=== PATIENT | female | born 1960 | race Caucasian/White ===

== ENCOUNTER → 2016-08-16 | Outpatient (CLI) | payer BC ==
[2014-06-02 15:43] VITALS: BP 121/78
--- NOTE | 2016-08-16 08:49 | RAD ---
Exam: PA and lateral chest radiograph History: Chest congestion, headache, sore throat for 3 days, asthma. Comparison: June 02, 2014. Findings: Cardiomediastinal silhouette is within normal limits for size. Bilateral lung puentes are free of focal infiltrate. No pleural effusion is seen. Impression: No acute cardiopulmonary process.
== END | disposition home or self-care (01) ==
LOC: DXRADRC 08:00
PROVIDERS: ATTEND Physician Assistant Medical
DX: J45.909 Unspecified asthma, uncomplicated (principal); R05 Cough
CPT/HCPCS: 71020

== ENCOUNTER → 2017-02-15 | Outpatient (CLI) | payer BC ==
[2014-06-02 15:43] VITALS: BP 121/78
--- NOTE | 2017-02-15 08:16 | RAD ---
Chest radiograph 02/15/2017 2:00 AM Indication: Productive cough, sore throat and fever Comparison: Chest radiograph 08/16/2016 Technique: PA and lateral views of the chest are provided. Findings: Cardiomediastinal silhouette is within normal limits. No pleural effusions, pulmonary vascular congestion or pneumothorax. There is nodular airspace consolidation in the left upper lobe suspicious for infiltrate. Osseous structures are normal. Impression: There is nodular airspace consolidation in the left upper lobe, new from prior examination. Findings are suspicious for pulmonary infiltrate in the appropriate clinical setting. Recommend follow-up chest radiograph in 3-4 weeks to ensure resolution.
== END | disposition home or self-care (01) ==
LOC: DXRADRC 07:39
PROVIDERS: ATTEND Nurse Practitioner Family
DX: J02.9 Acute pharyngitis, unspecified (principal); R50.9 Fever, unspecified; R05 Cough
CPT/HCPCS: 71020

== ENCOUNTER → 2017-02-18 | Outpatient (CLI) | payer BC ==
[2014-06-02 15:43] VITALS: BP 121/78
--- NOTE | 2017-02-18 08:57 | RAD ---
INDICATION: CHEST CONGESTION, HX OF PNEUMONIA COMPARISON: 02/15/2017 FINDINGS: 2 views of chest obtained. Repeat demonstration of focal opacity in the left upper lung which is similar to slightly decreased when compared to prior. No definite new region of focal consolidation. Cardiac silhouette similar prior IMPRESSION: Repeat demonstration of focal opacity in the left upper lung. This could be secondary to a region of pneumonia but continued follow-up will be needed until resolution.
== END | disposition home or self-care (01) ==
LOC: DXRADRC 08:43
PROVIDERS: ATTEND Nurse Practitioner Family
DX: R09.89 Other specified symptoms and signs involving the circulatory and respiratory systems (principal); J45.909 Unspecified asthma, uncomplicated; Z87.01 Personal history of pneumonia (recurrent)
CPT/HCPCS: 71020

== ENCOUNTER → 2017-02-22 | Outpatient (CLI) | payer BC ==
[2014-06-02 15:43] VITALS: BP 121/78
--- NOTE | 2017-02-22 15:26 | RAD ---
Chest, 2 views, 02/22/2017: History: Chest congestion with productive cough The heart size and pulmonary vascularity are normal. The previously seen left upper lobe opacity has nearly completely resolved. No new pulmonary abnormality is seen. There is no evidence of pleural fluid. Mild spurring is present in the spine. IMPRESSION: Further interval clearing of the mild left upper lobe infiltrate, compatible with resolving pneumonia.
== END | disposition home or self-care (01) ==
LOC: DXRADRC 10:22
PROVIDERS: ATTEND Nurse Practitioner Family
DX: R09.89 Other specified symptoms and signs involving the circulatory and respiratory systems (principal); R05 Cough; R91.8 Other nonspecific abnormal finding of lung field; M53.80 Other specified dorsopathies, site unspecified; J45.909 Unspecified asthma, uncomplicated
CPT/HCPCS: 71020

== ENCOUNTER → 2017-08-15 | Outpatient (CLI) | payer BC ==
[2014-06-02 15:43] VITALS: BP 121/78
[~2017-08-15] MED LIST: IOHEXOL 240 MG/ML 50ML VIAL. ONE; IOHEXOL 240 MG/ML 50ML VIAL. PO ONE; IOHEXOL 300 MG/ML 75 ML VIAL. IV ONE
--- NOTE | 2017-08-15 16:26 | RAD ---
CT ABD PELV W/ORAL IV CONTRAST dated 08/15/2017 3:49 PM Indication: Abdominal pain for 5 days.epigastric pain, Omni 300/75ml, [id number], 30ml in [place]. No prior imaging pain Comparison: 06/28/2011 Technique: Contiguous axial imaging of the abdomen and pelvis performed after the intravenous administration of 75 cc Omnipaque 300. One or more of the following individualized dose reduction techniques were utilized for this examination: 1. Automated exposure control 2. Adjustment of the mA and/or kV according to patient size 3. Use of iterative reconstruction technique Findings: Limited images of lung bases are clear. Heart size within normal limits. No pleural or pericardial effusion. Liver is of diffuse low density, compatible with fatty infiltration. No apparent hepatic mass. Biliary tree normal in caliber. Gallbladder unremarkable. Spleen is normal in size. Pancreas, adrenal glands and kidneys are unremarkable. No hydronephrosis. Partially opacified GI tract is normal in caliber and contour. No focal bowel wall thickening. There are a few scattered diverticula throughout the colon. No paracolonic inflammatory changes. The appendix is normal in caliber. No ascites or lymphadenopathy. Images of pelvis show nondistended urinary bladder. Uterus and adnexa are unremarkable. No free pelvic fluid or pelvic lymphadenopathy. Bone windows show no acute finding's. Mild multilevel spondylosis. IMPRESSION: 1. No acute abnormality of abdomen or pelvis. Normal appendix. 2. Diverticulosis. 3. Fatty infiltration of the liver. Electronically signed by: Zack Patricia MD (08/15/2017 4:22 PM) [id number]
== END | disposition home or self-care (01) ==
LOC: PMG 14:43
PROVIDERS: ATTEND Nurse Practitioner Family
DX: K76.0 Fatty (change of) liver, not elsewhere classified (principal); M47.894 Other spondylosis, thoracic region; K57.90 Diverticulosis of intestine, part unspecified, without perforation or abscess without bleeding
CPT/HCPCS: 74177; Q9966; Q9967

== ENCOUNTER 2019-05-15 12:26 | Emergency (ER) | payer BC ==
[~2019-05-15] VITALS: Ht 167.6 cm; Wt 104.0 kg
--- NOTE | 2019-05-15 12:47 | PHYS DOC ---
Past History Past Medical History: No Pertinent History Past Surgical History: , Hysterectomy Alcohol Use: None Drug Use: None Adult General Chief Complaint Chief Complaint: FLANK PAIN [facility] HPI Patient is a 58 year old F who presents with painful urination, frequency, urgency and left flank pain. She was diagnosed with a urinary tract infection several days ago and started on Cipro. Her symptoms did not improve. Initially she had urinary tract infections symptoms. She has since developed nausea and left flank pain. She describes some loose stools. She does have a history of diverticulitis however she feels that her symptoms are different from previous episodes of diverticulitis. She has no other associated symptoms. She states that her pain is worse with movement and improved with rest. Her pain is dull and constant. Review of Systems Review of Systems Constitutional: Denies fever or chills [] Eyes: Denies change in visual acuity, redness, or eye pain [] HENT: Denies nasal congestion or sore throat [] Respiratory: Denies cough or shortness of breath [] Cardiovascular: No additional information not addressed in HPI [] GI: Negative except history of present illness : Negative except history of present illness Musculoskeletal: Denies back pain or joint pain [] Integument: Denies rash or skin lesions [] Neurologic: Denies headache, focal weakness or sensory changes [] Endocrine: Denies polyuria or polydipsia [] All other systems were reviewed and found to be within normal limits, except as documented in this note. Family History Family History No pertinent family medical history was reported Allergies Allergies Allergies Coded Allergies Type Severity Reaction Last Updated Verified aspirin Allergy Unknown 06/02/14 Yes gatifloxacin Allergy Unknown 06/02/14 Yes Physical Exam Physical Exam Constitutional: Well developed, well nourished, no acute distress, non-toxic appearance. [] Appears uncomfortable HENT: Normocephalic, atraumatic Eyes: EOMI, conjunctiva normal, no discharge. [] Neck: Normal range of motion, no tenderness, supple, no stridor. [] Cardiovascular:Heart rate regular rhythm, Lungs & Thorax: Bilateral breath sounds clear to auscultation [] Abdomen: Bowel sounds normal, soft, no masses, no pulsatile masses. [] Tender to palpation in the suprapubic and left lower quadrant. Left flank tenderness noted Skin: Warm, dry, no erythema, no rash. [] Back: No tenderness, Extremities: No tenderness, no cyanosis, no clubbing, ROM intact, no edema. [] Neurologic: Alert and oriented X 3, normal motor function, normal sensory function, no focal deficits noted. [] Psychologic: Affect normal, judgement normal, mood normal. [] Current Patient Data Vital Signs Vital Signs Date Time Temp Pulse Resp B/P (MAP) Pulse Ox O2 Delivery O2 Flow Rate FiO2 05/15/19 13:25 18 05/15/19 12:30 98.0 83 20 96 Room Air Lab Results Laboratory Tests Test 05/15/19 12:48 05/15/19 13:20 Urine Collection Type Unknown Urine Color Yellow Urine Clarity Clear Urine pH 6.0 Urine Specific [place] 1.025 Urine Protein Neg (NEG-TRACE) Urine Glucose (UA) Neg mg/dL (NEG) Urine Ketones (Stick) Neg mg/dL (NEG) Urine Blood Neg (NEG) Urine Nitrite Neg (NEG) Urine Bilirubin Neg (NEG) Urine Urobilinogen Dipstick 0.2 mg/dL (0.2 mg/dL) Urine Leukocyte Esterase Neg (NEG) Urine RBC 0 /HPF (0-2) Urine WBC Rare /HPF (0-4) Urine Squamous Epithelial Cells Occ /LPF Urine Bacteria Few /HPF (0-FEW) White Blood Count 7.7 x10^3/uL (4.0-11.0) Red Blood Count 5.07 x10^6/uL (3.50-5.40) Hemoglobin 15.6 g/dL (12.0-15.5) Hematocrit 46.5 % (36.0-47.0) Mean Corpuscular Volume 92 fL (79-100) Mean Corpuscular Hemoglobin 31 pg (25-35) Mean Corpuscular Hemoglobin Concent 33 g/dL (31-37) Red Cell Distribution Width 13.2 % (11.5-14.5) Platelet Count 300 x10^3/uL (140-400) Neutrophils (%) (Auto) 78 % (31-73) Lymphocytes (%) (Auto) 17 % (24-48) Monocytes (%) (Auto) 4 % (0-9) Eosinophils (%) (Auto) 0 % (0-3) Basophils (%) (Auto) 0 % (0-3) Neutrophils # (Auto) 6.0 x10^3uL (1.8-7.7) Lymphocytes # (Auto) 1.3 x10^3/uL (1.0-4.8) Monocytes # (Auto) 0.3 x10^3/uL (0.0-1.1) Eosinophils # (Auto) 0.0 x10^3/uL (0.0-0.7) Basophils # (Auto) 0.0 x10^3/uL (0.0-0.2) Sodium Level 139 mmol/L (136-145) Potassium Level 3.6 mmol/L (3.5-5.1) Chloride Level 100 mmol/L (98-107) Carbon Dioxide Level 30 mmol/L (21-32) Anion Gap 9 (6-14) Blood Urea Nitrogen 19 mg/dL (7-20) Creatinine 1.0 mg/dL (0.6-1.0) Estimated GFR (Cockcroft-Gault) 56.6 Glucose Level 121 mg/dL (70-99) Calcium Level 9.3 mg/dL (8.5-10.1) Total Bilirubin 0.3 mg/dL (0.2-1.0) Direct Bilirubin 0.1 mg/dL (0.0-0.2) Aspartate Amino Transf (AST/SGOT) 16 U/L (15-37) Alanine Aminotransferase (ALT/SGPT) 35 U/L (14-59) Alkaline Phosphatase 98 U/L (46-116) Total Protein 8.0 g/dL (6.4-8.2) Albumin 4.1 g/dL (3.4-5.0) Lipase 131 U/L (73-393) EKG EKG [] Radiology/Procedures Radiology/Procedures [] Impressions: Examination: CT ABD PELV W/ IV CONTRST ONLY History: Abdominal pain Comparison/Correlation: 08/16/[address] abdomen and pelvis with contrast Findings: Axial images of the abdomen and pelvis were obtained following IV contrast. Sagittal and coronal reformatted images were provided. Visualized lung bases are clear. Mild fatty infiltration of the liver is present. Spleen is normal. Pancreas is unremarkable. Adrenal glands are normal. Rectum is normal. Left renal upper pole lesion which may represent a cyst or other benign process is stable at the medial aspect. Appendix is normal. Diverticulosis is present involving the sigmoid colon in particular without acute inflammatory findings. Mild diverticulosis of the seen. No ascites or pelvic free fluid. Urinary bladder is unremarkable. Uterus is unremarkable. Small umbilical hernia contains omental fat. No bowel obstruction or extraluminal gas. Gallbladder fossa is unremarkable. No enlarged abdominal or pelvic lymph nodes. Mild degenerative change of the lumbar spine noted. Impression: Diverticulosis. No acute inflammation. Fatty infiltration of the liver. Course & Med Decision Making Course & Med Decision Making Pertinent Labs and Imaging studies reviewed. (See chart for details) [] Dragon Disclaimer Dragon Disclaimer This electronic medical record was generated, in whole or in part, using a voice recognition dictation system. Departure Departure: Impression: Primary Impression: Abdominal pain Disposition: HOME, SELF-CARE Condition: STABLE Referrals: PCPKAREN (PCP) Patient Instructions: Abdominal Pain Additional Instructions: Lakisha was seen in the ED for abdominal pain. No emergency medical condition was found on history and physical exam. She did have normal labs and imaging. Her symptoms did improve. She was given a script for Levsin for her symptoms. She was advised to return to the ED if she develops new or worsening symptoms. She was also advised follow-up with her primary care doctor in the next 3-5 days for further management Scripts Hyoscyamine Sulfate (LEVSIN) 0.125 Mg Tablet 1 TAB PO Q4HRS PRN for PAIN for 20 Days, #120 TAB 0 Refills Prov: TORRI JARA MD 05/15/19 Problem Qualifiers Primary Impression: Abdominal pain Abdominal location: left lower quadrant Qualified Codes: R10.32 - Left lower quadrant pain TORRI JARA MD May 15, 2019 12:47
[2019-05-15 13:07] LABS: BACTERIA,URINE FEW /HPF (0-FEW); BILIRUBIN,URINE NEG (NEG); CLARITY,URINE CLEAR; COLOR,URINE YELLOW; GLUCOSE,URINE NEG (NEG); NITRITE,URINE NEG (NEG); RBC,URINE 0 /HPF (0-2); SQUAMOUS EPITHELIAL CELL,UR OCC /LPF; UROBILINOGEN,URINE 0.2 mg/dL (0.2 mg/dL); WBC,URINE RARE /HPF (0-4)
[2019-05-15] MEDS ORDERED: HYDROcodone/APAP 10/325 1 TAB TABLET PO ONE (13:30)
[2019-05-15] MEDS ORDERED: IV NORMAL SALINE 1,000ML 1,000 ML IV ONE (13:30)
[2019-05-15 13:37] LABS: BASO % 0 % (0-3); EOS % 0 % (0-3); HEMATOCRIT 46.5 % (36.0-47.0); HEMOGLOBIN 15.6 g/dL (12.0-15.5); LYMPH # 1.3 x10^3/uL (1.0-4.8); LYMPH % 17 % (24-48); MEAN CORPUSCULAR HEMOGLOBIN 31 pg (25-35); MEAN CORPUSCULAR HGB CONC 33 g/dL (31-37); MEAN CORPUSCULAR VOLUME 92 fL (79-100); MONO # 0.3 x10^3/uL (0.0-1.1); MONO % 4 % (0-9); NEUT % 78 % (31-73); PLATELET COUNT 300 x10^3/uL (140-400); RED BLOOD COUNT 5.07 x10^6/uL (3.50-5.40); RED CELL DISTRIBUTION WIDTH 13.2 % (11.5-14.5); WHITE BLOOD COUNT 7.7 x10^3/uL (4.0-11.0)
[2019-05-15 13:43] LABS: CALCIUM 9.3 mg/dL (8.5-10.1); GFR 56.6; POTASSIUM 3.6 mmol/L (3.5-5.1)
[2019-05-15 14:07] LABS: ALBUMIN 4.1 g/dL (3.4-5.0); DIRECT BILIRUBIN 0.1 mg/dL (0.0-0.2); TOTAL BILIRUBIN 0.3 mg/dL (0.2-1.0)
[2019-05-15] MEDS ORDERED: CONTRAST GIVEN MC PRN (14:15)
[2019-05-15] MEDS ORDERED: IOHEXOL 300 MG/ML 75 ML VIAL. IV ONE (14:15)
--- NOTE | 2019-05-15 14:59 | RAD ---
Examination: CT ABD PELV W/ IV CONTRST ONLY History: Abdominal pain Comparison/Correlation: 08/16/[address] abdomen and pelvis with contrast Findings: Axial images of the abdomen and pelvis were obtained following IV contrast. Sagittal and coronal reformatted images were provided. Visualized lung bases are clear. Mild fatty infiltration of the liver is present. Spleen is normal. Pancreas is unremarkable. Adrenal glands are normal. Rectum is normal. Left renal upper pole lesion which may represent a cyst or other benign process is stable at the medial aspect. Appendix is normal. Diverticulosis is present involving the sigmoid colon in particular without acute inflammatory findings. Mild diverticulosis of the seen. No ascites or pelvic free fluid. Urinary bladder is unremarkable. Uterus is unremarkable. Small umbilical hernia contains omental fat. No bowel obstruction or extraluminal gas. Gallbladder fossa is unremarkable. No enlarged abdominal or pelvic lymph nodes. Mild degenerative change of the lumbar spine noted. Impression: Diverticulosis. No acute inflammation. Fatty infiltration of the liver. PQRS Compliance Statement: One or more of the following individualized dose reduction techniques were utilized for this examination: 1. Automated exposure control 2. Adjustment of the mA and/or kV according to patient size 3. Use of iterative reconstruction technique Electronically signed by: Evaristo Vargas MD (05/15/2019 2:56 PM) [facility]
[2019-05-15 15:11] VITALS: BP 109/56
[2019-05-15] MEDS ORDERED: HYOS0.1264 PO (15:45)
== END 2019-05-15 15:49 | disposition home or self-care (01) ==
LOC: ER 12:26
DX: R10.32 Left lower quadrant pain (principal); R30.0 Dysuria; R39.15 Urgency of urination; R19.7 Diarrhea, unspecified; Z87.440 Personal history of urinary (tract) infections; Z90.710 Acquired absence of both cervix and uterus; Z98.890 Other specified postprocedural states; Z88.1 Allergy status to other antibiotic agents; Z88.6 Allergy status to analgesic agent
CPT/HCPCS: 36415; 74177; 80048; 80076; 81001; 83690; 85025; 96360; 99285; Q9967; J7030

== ENCOUNTER → 2019-06-19 | Outpatient (CLI) | payer BC ==
[~2019-06-19] MED LIST changes: +HYOS0.1264 PO; -IOHEXOL 240 MG/ML 50ML VIAL. ONE; -IOHEXOL 240 MG/ML 50ML VIAL. PO ONE; -IOHEXOL 300 MG/ML 75 ML VIAL. IV ONE
--- NOTE | 2019-06-22 14:39 | RAD ---
History: Routine screening. Technique: Bilateral digital mammographic routine views were obtained with 2-D and 3-D technique including use of CAD - computer aided detection. Comparison: 11/03/2012. Findings: Breast Tissue Density B :The breast tissue is composed of mixed fatty and fibroglandular tissue. There are no suspicious masses, microcalcifications or areas of architectural distortion. Impression: Negative mammogram. BI-RADS Category 1: Negative. Normal interval followup. A mammogram does not have 100% sensitivity and therefore a negative imaging study should not delay further work up of a suspicious abnormality. The patient will receive a letter with the results in the mail. Patient information is entered into the reminder system with a target due date for the next screening mammogram. The patient will receive a reminder. "Our facility is accredited by the [employer] Mammography Program." BI-RADS 1 -- negative findings (within normal)
== END | disposition home or self-care (01) ==
LOC: MAMMO 15:15
PROVIDERS: ATTEND Physician Assistant Medical
DX: Z12.31 Encounter for screening mammogram for malignant neoplasm of breast (principal)
CPT/HCPCS: 77063; 77067

== ENCOUNTER 2019-11-04 05:40 | Observation (INO) | payer BC ==
[~2019-11-04] VITALS: Ht 167.6 cm; Wt 102.6 kg
--- NOTE | 2019-11-04 05:46 | PHYS DOC ---
Past History Past Medical History: Asthma, Depression, Diverticulitis, GERD (JOEY NOVOA MD) Past Surgical History: , Hysterectomy, Other Additional Past Surgical Histo: FOOT SURGERIES (JOEY NOVOA MD) Alcohol Use: None Drug Use: None (JOEY NOVOA MD) General Adult EDM: Chief Complaint: dizziness HPI: HPI: Patient is a 59 year old female who presents with above hx and complaints dizzy. Pt. follow s with Nina. (JOEY NOVOA MD) HPI: Patient is a 59-year-old female who presented to ER today for evaluation of dizziness associate with some nausea vomiting. Patient says symptoms started yesterday, she was thinking it might be her nasal congestion, so she used [id number] decongestant medication. That seemed to help with her symptoms. Patient felt much better then. Patient went to sleep last night, she woke up this morning at 2 AM to go to the bathroom when she has severe dizziness, she felt she might fall because of dizziness. Patient also have ringing in her ear, her symptom get worse with head movement or upright position. Patient denies any weakness or numbness anywhere. Denies any memory loss or slow speech. Patient denies any headache, no fever. Patient is still feeling dizzy right now. Patient had not had this Problem in the past. Patient denies any cough or fever, no recent travel or operation. Patient denies being exposed to anybody who tested positive for COVID-19. (TORRI MO DO) Review of Systems: Review of Systems: Constitutional: Denies fever or chills Eyes: Denies change in visual acuity HENT: Denies nasal congestion or sore throat Respiratory: Denies cough or shortness of breath Cardiovascular: Denies chest pain or edema GI: Denies abdominal pain, nausea, vomiting, bloody stools or diarrhea : Denies dysuria Musculoskeletal: Denies back pain or joint pain Integument: Denies rash Neurologic: Denies headache, focal weakness or sensory changes Endocrine: Denies polyuria or polydipsia Lymphatic: Denies swollen glands Psychiatric: Denies depression or anxiety (JOEY NOVOA MD) Heart Score: Risk Factors: Risk Factors: DM, Current or recent (<one month) smoker, HTN, HLP, family history of CAD, obesity. Risk Scores: Score 0 - 3: 2.5% MACE over next 6 weeks - Discharge Home Score 4 - 6: 20.3% MACE over next 6 weeks - Admit for Clinical Observation Score 7 - 10: 72.7% MACE over next 6 weeks - Early Invasive Strategies (JOEY NOVOA MD) Allergies: Allergies: Allergies Coded Allergies Type Severity Reaction Last Updated Verified aspirin Allergy Unknown 06/02/14 Yes gatifloxacin Allergy Unknown 06/02/14 Yes (JOEY NOVOA MD) Physical Exam: PE: Constitutional: Well developed, well nourished, no acute distress, non-toxic appearance. [] HENT: Normocephalic, atraumatic, bilateral external ears normal, oropharynx moist, no oral exudates, nose normal. [] Eyes: PERRLA, EOMI, conjunctiva normal, no discharge. [] Neck: Normal range of motion, no tenderness, supple, no stridor. [] Cardiovascular:Heart rate regular rhythm, no murmur [] Lungs & Thorax: Bilateral breath sounds clear to auscultation [] Abdomen: Bowel sounds normal, soft, no tenderness, no masses, no pulsatile masses. [] Skin: Warm, dry, no erythema, no rash. [] Back: No tenderness, no CVA tenderness. [] Extremities: No tenderness, no cyanosis, no clubbing, ROM intact, no edema. [] Neurologic: Alert and oriented X 3, normal motor function, normal sensory function, no focal deficits noted. [] Psychologic: Affect normal, judgement normal, mood normal. [] (JOEY NOVOA MD) PE: VITAL SIGNS: Within normal limits. GENERAL: No acute distress, non-toxic appearance. HEAD: Normal with no signs of head trauma. EYES: PERRLA, EOMI, conjunctiva normal, no discharge. EARS: Hearing grossly intact. NOSE: Normal. THROAT: Oropharynx is normal. NECK: Normal range of motion, no tenderness, supple, no lymphadenopathy, No adenopathy, no JVD. CHEST: Clear breath sounds bilaterally. No wheezes, rales, or rhonchi. CARDIAC: Regular rate and rhythm. S1 and S2, without murmurs, gallops, or rubs. VASCULAR: No Edema. Peripheral pulses normal and equal in all extremities. ABDOMEN: Normal and soft with no tenderness, no masses or pulsatile masses. GASTROINTESTINAL: Bowel sounds normal GENITOURINARY: Normal, No tenderness LYMPATHTIC: No lymphadenopathy noted. MUSCULOSKELETAL: Good range of motion of all major joints. Extremities without clubbing, cyanosis or edema. NEUROLOGICAL: Alert and oriented x 3. No focal sensory or strength deficits. Speech normal. Follows commands appropriately. PSYCHIATRIC: Normal Affect, judgement and mood. SKIN: Normal appearance with no rashes or lesions. (TORRI MO DO) EKG: EKG: [] (JOEY NOVOA MD) EKG: EKG was done at 601, heart rate 78 beats per minute, normal sinus rhythm, no ST segment elevation. (TORRI MO DO) Radiology/Procedures: Radiology/Procedures: [] (JOEY NOVOA MD) Radiology/Procedures: [place] [address] IMAGING REPORT Signed PATIENT: NANCY BUENO ACCOUNT: [id number] : 1960 LOCATION: ER AGE: 59 SEX: F EXAM STATUS: REG ER ORD. PHYSICIAN: JOEY NOVOA MD REASON: dizzy PROCEDURE: CT HEAD WO CONTRAST CT scan of the head without contrast 11/04/2019 Clinical History: Dizziness. Technique: Unenhanced, contiguous, 5 mm axial sections were obtained through the head. One or more of the following individualized dose reduction techniques were utilized for this study: 1. Automated exposure control. 2. Adjustment of the mA and/or kV according to patient size. 3. Use of iterative reconstruction technique. Findings: No previous studies are available for comparison. There is mild generalized parenchymal atrophy. No acute parenchymal abnormality is seen. No extra-axial fluid collection is noted. No skull fracture is seen. Impression: No acute intracranial abnormality is seen. Electronically signed by: Bereket Bojorquez MD (11/04/2019 6:38 AM) [id number] DICTATED AND SIGNED BY: BEREKET BOJORQUEZ MD DATE: 11/04/19 0638 CC: JOEY NOVOA MD; TORRI OM DO; BRI QUEZADA ~ (TORRI MO DO) Course & Med Decision Making: Course & Med Decision Making Pertinent Labs and Imaging studies reviewed. (See chart for details) Pt. endorsed to Dr. Mo at shift change 0600, he will make disposition. Impression: 1. Dizzy [] (JOEY NOVOA MD) Course & Med Decision Making Patient is a 59-year-old female who was evaluated in ER due to dizziness. Patient was given meclizine , and Zofran for nausea. Patient feels better but whenever she was up and walk again she started having dizziness and nausea again. We will admit her to the hospital for further evaluation treatment. (TORRI MO DO) Dragon Disclaimer: Dragon Disclaimer: This electronic medical record was generated, in whole or in part, using a voice recognition dictation system. (JOEY NOVOA MD) Departure Departure: Impression: Primary Impression: Dizziness Additional Impression: Acute severe vertigo Disposition: ADMITTED INPATIENT Admitting Physician: Shaka Fox (TORRI MO DO) Condition: STABLE Referrals: BRI QUEZADA (PCP) Justification of Admission: Justification of Admission: Justification of Admission Dx: Yes Comments: Dizzy, TIA ? (JOEY NOVOA MD) Justification of Admission Dx: N/A (TORRI MO DO) Dragon Disclaimer This chart was dictated in whole or in part using Voice Recognition software in a busy, high-work load, and often noisy Emergency Department environment. It may contain unintended and wholly unrecognized errors or omissions. (JOEY NOVOA MD) JOEY NOVOA MD Nov 04, 2019 05:46 TORRI MO DO Nov 04, 2019 07:05
[2019-11-04] MEDS ORDERED: IV RINGERS SOLUTION,LACTATED 1,000 ML IV SCH (06:00)
--- NOTE | 2019-11-04 06:15 | EKG ---
[address] [address] Test Date: 2019-11-04 Test Time: 06:01:23 Pat Name: NANCY BUENO Department: Room: Gender: F Lighting Specialist: : 1960 Requested By: JOEY NOVOA Order Number: [id number] Reading MD: Measurements Intervals Wilder Rate: 78 P: 47 TX: 158 QRS: 16 QRSD: 90 T: 18 QT: 378 QTc: 434 Interpretive Statements SINUS RHYTHM NORMAL ECG RI6.02 No previous ECG available for comparison
--- NOTE | 2019-11-04 06:41 | RAD ---
CT scan of the head without contrast 11/04/2019 Clinical History: Dizziness. Technique: Unenhanced, contiguous, 5 mm axial sections were obtained through the head. One or more of the following individualized dose reduction techniques were utilized for this study: 1. Automated exposure control. 2. Adjustment of the mA and/or kV according to patient size. 3. Use of iterative reconstruction technique. Findings: No previous studies are available for comparison. There is mild generalized parenchymal atrophy. No acute parenchymal abnormality is seen. No extra-axial fluid collection is noted. No skull fracture is seen. Impression: No acute intracranial abnormality is seen. Electronically signed by: Bereket Bojorquez MD (11/04/2019 6:38 AM) [id number]
[2019-11-04] MEDS ORDERED: MECLIZINE 12.5 MG TABLET. PO ONE (06:45)
[2019-11-04] MEDS ORDERED: ONDANSETRON PF 4 MG/2 ML VIAL. IVP ONE (06:45)
[2019-11-04 07:31] LABS: BASO % 0 % (0-3); EOS % 1 % (0-3); HEMATOCRIT 42.6 % (36.0-47.0); HEMOGLOBIN 14.8 g/dL (12.0-15.5); LYMPH # 0.9 x10^3/uL (1.0-4.8); LYMPH % 21 % (24-48); MEAN CORPUSCULAR HEMOGLOBIN 31 pg (25-35); MEAN CORPUSCULAR HGB CONC 35 g/dL (31-37); MEAN CORPUSCULAR VOLUME 91 fL (79-100); MONO # 0.2 x10^3/uL (0.0-1.1); MONO % 6 % (0-9); NEUT # 3.1 x10^3uL (1.8-7.7); NEUT % 73 % (31-73); PLATELET COUNT 238 x10^3/uL (140-400); RED CELL DISTRIBUTION WIDTH 13.2 % (11.5-14.5); WHITE BLOOD COUNT 4.2 x10^3/uL (4.0-11.0)
--- NOTE | 2019-11-04 07:34 | RAD ---
EXAM: CHEST PA LATERAL INDICATION: Reason: dizzy / Spl. Instructions: / History: . TECHNIQUE: PA and lateral views COMPARISON: 02/22/2017 FINDINGS: The heart size is normal. The great vessels appear unremarkable. There is no hilar or mediastinal mass. The lungs are clear. There is no pleural effusion or pneumothorax. There are no significant osseous abnormalities. IMPRESSION: No active cardiopulmonary disease. Electronically signed by: Agustin Escobar MD (11/04/2019 7:31 AM) [id number]
[2019-11-04 08:01] LABS: CALCIUM 9.2 mg/dL (8.5-10.1); GFR 56.4
[2019-11-04 08:10] LABS: ALBUMIN 3.7 g/dL (3.4-5.0); C REACTIVE PROTEIN 7.3 mg/L (0-3.3); DIRECT BILIRUBIN 0.1 mg/dL (0.0-0.2); TOTAL BILIRUBIN 0.3 mg/dL (0.2-1.0); TOTAL PROTEIN 6.8 g/dL (6.4-8.2)
[2019-11-04 08:20] LABS: POTASSIUM 3.5 mmol/L (3.5-5.1)
[2019-11-04 08:55] LABS: AMPHETAMINE/METHAMPHETAMINE NEG (NEG); BARBITURATES NEG (NEG); BENZODIAZEPINES NEG (NEG); CANNABINOIDS NEG (NEG); COCAINE NEG (NEG); METHADONE NEG (NEG); OPIATES NEG (NEG); PHENCYCLIDINE NEG (NEG)
[2019-11-04 09:03] LABS: BACTERIA,URINE FEW /HPF (0-FEW); BILIRUBIN,URINE NEG (NEG); CLARITY,URINE HAZY; COLOR,URINE YELLOW; GLUCOSE,URINE NEG (NEG); NITRITE,URINE NEG (NEG); SQUAMOUS EPITHELIAL CELL,UR MANY /LPF; UROBILINOGEN,URINE 0.2 mg/dL (0.2 mg/dL)
[2019-11-04] MEDS ORDERED: ONDANSETRON PF 4 MG/2 ML VIAL. IVP PRN (10:00)
[2019-11-04] MEDS ORDERED: MECLIZINE 12.5 MG TABLET. PO PRN (10:00)
--- NOTE | 2019-11-04 11:26 | NUR ---
Patient arrived to unit via EMS. Patient is pleasant and cooperative at time of admission. Patients vs obtained and are stable. Patient is offered food and drink. Patient is resting in room at this time. Will continue to monitor.
[2019-11-04 11:45] VITALS: BP 179/82
--- NOTE | 2019-11-04 12:00 | HP ---
ADMIT DATE: 11/04/2019 ATTENDING PHYSICIAN: Dr. Suárez. CHIEF COMPLAINT: Dizziness. HISTORY OF PRESENT ILLNESS: The patient is a very pleasant 59-year-old female who is admitted with a 2-day history of profound dizziness, nausea and symptoms related to vertigo. She has been working outdoors. She does have significant allergies. She has had nausea to the point of one episode of vomiting. In the ED, the CT of the head showed no acute strokes. Her symptoms are aggravated by head movement. She is admitted then with acute vertigo, refractory to outpatient care. PAST MEDICAL HISTORY: Significant for mild asthma, depression, diverticulitis, and gastroesophageal reflux disease. PAST SURGICAL HISTORY: section, hysterectomy and minor foot surgery. ALLERGIES: She has allergies to ASPIRIN and GATIFLOXACIN. MEDICATIONS: Her scheduled medicine only include Levsin. SOCIAL HISTORY: She is a nonsmoker, nondrinker. 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 FAMILY HISTORY: Noncontributory. She has 1 son who works in the same facility. He is an adult and in good health. REVIEW OF SYSTEMS: Significant for allergies. She has had significant allergy symptoms, treated with [id number] antihistamine. No recent fevers, chills, cough, congestion. Nausea as noted. One episode of vomiting. All other systems reviewed and determined to be negative. PHYSICAL EXAMINATION: GENERAL: When I saw her, this is a pleasant, middle-aged female. INITIAL VITAL SIGNS: Showed a blood pressure 147/85 mmHg, temperature 98.7 degrees Fahrenheit. Her oxygen saturations were 97% on room air. HEENT: Head is without trauma. Pupils are reactive. I did not appreciate any nystagmus. NECK: Supple. No adenopathy. LUNGS: Otherwise clear. CARDIOVASCULAR: Showed regular heart tones. No gallops. Peripheral pulses are palpable and full. ABDOMEN: Soft, scaphoid, nontender, no organomegaly. Bowel sounds are hypoactive. EXTREMITIES: Showed no cyanosis or edema. NEUROLOGIC: Focally intact. Speech is fluent. No tremors. I did not assess her Romberg at this time due to dizziness. SKIN: Warm and dry. PERTINENT LABORATORY AND IMAGING STUDIES: The obligatory CT of the head showed no acute intracranial abnormalities identified. Chest x-ray was entirely clear. Hemoglobin is maintained at 14.8 g/dL with white count of 4200. Chemistry panel: Normal BUN and creatinine, electrolytes. Nonfasting blood sugar is 132 mg/dL. ASSESSMENT: 1. This 59-year-old female has acute symptomatic vertigo, refractory to outpatient care. 2. Seasonal allergies. 3. Borderline hypertension. 4. Remote history of asthma. PLAN: 1. Admit to the inpatient unit. 2. Strict bed rest with bathroom privileges. 3. Scheduled meclizine, low dose diazepam and steroids. P.r.n. nausea medication will be also available. AYDEN SUÁREZ MD DR: WHITLEY/ollie JOB#: [id number] / [id number] BRI Bettencourt
[2019-11-04] MEDS: ACETAMINOPHEN 500 MG TABLET PO PRN (12:23)
[2019-11-04] MEDS: predniSONE 20 MG TABLET PO SCH ×2 (12:23→20:00)
[2019-11-04] MEDS: diazePAM 2 MG TABLET PO SCH ×2 (13:28→21:19)
[2019-11-04] MEDS: MECLIZINE 12.5 MG TABLET. PO SCH ×2 (13:28→21:19)
[2019-11-04] MEDS ORDERED: BUPR150T8 PO (14:28)
[2019-11-04] MEDS ORDERED: FAMO-63 PO (14:28)
[2019-11-04] MEDS ORDERED: TRIA1CAP3 PO (14:28)
[2019-11-04 16:17] VITALS: BP 149/71
[2019-11-04] MEDS ORDERED: MONT10TA80 PO (17:12)
[2019-11-04] MEDS ORDERED: HYOSCYAMINE 0.125 MG TAB.RAPDIS PO PRN (17:30)
[2019-11-04 19:53] VITALS: BP 151/64
[2019-11-04] MEDS: FAMOTIDINE 20 MG TABLET PO SCH (20:00)
[2019-11-04] MEDS: buPROPion SR 150 MG TABLET.SA PO SCH (20:01)
[2019-11-04] MEDS ORDERED: MONTELUKAST 10 MG TABLET. PO SCH (21:00)
[2019-11-04] MEDS: DOCUSATE SODIUM 100 MG CAPSULE PO SCH (21:19)
[2019-11-04 23:00] VITALS: BP 149/70
[2019-11-05] MEDS: MECLIZINE 12.5 MG TABLET. PO SCH (05:17)
[2019-11-05] MEDS: ACETAMINOPHEN 500 MG TABLET PO PRN (05:17)
[2019-11-05] MEDS: diazePAM 2 MG TABLET PO SCH (05:17)
[2019-11-05 05:27] VITALS: BP 122/72
[2019-11-05] MEDS: DOCUSATE SODIUM 100 MG CAPSULE PO SCH (07:53)
[2019-11-05] MEDS: buPROPion SR 150 MG TABLET.SA PO SCH (07:53)
[2019-11-05] MEDS: FAMOTIDINE 20 MG TABLET PO SCH (07:54)
[2019-11-05] MEDS: predniSONE 20 MG TABLET PO SCH (07:54)
[2019-11-05] MEDS ORDERED: TRIAMTERENE/HCTZ 75/50MG TABLET. PO SCH (09:00)
--- NOTE | 2019-11-05 10:37 | NUR ---
Patient is Discharged home with . Patient is given prescriptions for Valium, and meclizine. Patient is stable at time of discharge. Patient's IV is D/C'd. Patient has all belongings at time of discharge. Patient ambulated off of unit.
--- NOTE | 2019-11-05 10:59 | DS ---
DATE OF DISCHARGE: 11/05/2019 ATTENDING PHYSICIAN: Dr Suárez. FINAL DISCHARGE DIAGNOSES: 1. Acute vertigo, resolved. 2. Seasonal allergies. 3. Hypertension. 4. Remote history of asthma. HISTORY AND PHYSICAL: This pleasant 59-year-old female has vertigo symptoms. She is very nauseated. Room is spinning dizzy. She was working outdoors and allergies are bothering her. PHYSICAL EXAMINATION: Please see the dictated note. PERTINENT LABORATORY AND X-RAY STUDIES: The obligatory CT of the head showed no acute findings. There is generalized parenchymal atrophy, no strokes were identified. The hemoglobin is maintained at 14.8 g/dL with a white count of 4200. The electrolytes, BUN and creatinine all within normal range. Nonfasting blood sugar 132. Cardiac enzymes were negative for myocardial ischemia. COURSE IN THE HOSPITAL: The patient was admitted. She was placed on bed rest. We started her on empiric meclizine schedule, diazepam and a short course of steroids. She did well. By the second hospital day, she was doing better. The nystagmus was not present. Her dizziness has gone. She was not nauseated and she had a negative Romberg test by my exam. She wanted to go home. I recommended 4 more days of meclizine 25 mg p.o. t.i.d., diazepam 2 mg p.o. t.i.d. with continuation of her home meds. She will also get Stacy-D mbai-cxx-qvhrryp for allergies. I encouraged her to stay indoors and avoid further contact with pollen for the rest of the week. Other home meds include BuSpar, Pepcid, Levsin, montelukast, triamterene/hydrochlorothiazide, dose is unchanged. The patient was then discharged from our hospital in stable condition with explicit instructions and followup care. AYDEN SUÁREZ MD DR: WHITLEY/ollie JOB#: [id number] / [id number] BRI Bettencourt
== END 2019-11-05 10:37 | disposition home or self-care (01) ==
LOC: ER 05:40 → INTOOBSV 09:40 → 1 SOUTH 09:40
PROVIDERS: ADMIT Hospitalist; ATTEND Hospitalist
DX: R42 Dizziness and giddiness (principal); K21.9 Gastro-esophageal reflux disease without esophagitis; F32.9 Major depressive disorder, single episode, unspecified; I10 Essential (primary) hypertension; J45.20 Mild intermittent asthma, uncomplicated; Z79.899 Other long term (current) drug therapy
CPT/HCPCS: 36415; 70450; 71046; 80048; 80076; 80307; 81001; 82550; 83690; 83735; 83880; 84443; 84484; 85025; 85379; 85610; 85730; 86140; 87086; 93005; 96361; 96374; 96376; 99285; G0378; J2405; J7120; J7512; J8597; G0379

== ENCOUNTER → 2019-11-15 | Outpatient (CLI) | payer BC ==
[2019-11-05 05:27] VITALS: BP 122/72
[~2019-11-15] MED LIST changes: +BUPR150T8 PO; +FAMO-63 PO; +MONT10TA80 PO; +TRIA1CAP3 PO
--- NOTE | 2019-11-15 12:45 | RAD ---
EXAM: Maxillofacial bone CT without contrast. HISTORY: Dizziness. Headache. Sinusitis. TECHNIQUE: Computed tomographic images of the neck show facial bones were obtained without contrast. *One or more of the following individualized dose reduction techniques were utilized for this examination: 1. Automated exposure control. 2. Adjustment of the mA and/or kV according to patient size. 3. Use of iterative reconstruction technique. COMPARISON: Head CT dated 11/04/2019. FINDINGS: There is minimal maxillary sinus mucosal thickening. The ostiomeatal units are patent. There is minimal leftward nasal septal deviation. There is no sinus air-fluid level, sinus wall erosion or wall thickening. The orbits are unremarkable. The mastoid air cells are clear. The visualized portions of the brain and calvarium are unremarkable. IMPRESSION: Minimal maxillary sinus mucosal thickening and nasal septal deviation. Electronically signed by: Cheryl Valle MD (11/15/2019 12:42 PM) [id number]
== END ==
LOC: CT 11:39
PROVIDERS: ATTEND Physician Assistant Medical
DX: J34.2 Deviated nasal septum (principal)
CPT/HCPCS: 70486

== ENCOUNTER 2020-04-12 13:53 | Emergency (ER) | payer BC ==
[~2020-04-12] VITALS: Ht 167.6 cm; Wt 102.6 kg
--- NOTE | 2020-04-12 14:08 | PHYS DOC ---
Past History Past Medical History: Asthma, Depression, Diverticulitis, GERD Past Surgical History: , Hysterectomy, Other Additional Past Surgical Histo: FOOT SURGERIES; 2 laparascopic surg for endometriosis Alcohol Use: Rarely Drug Use: None General Adult HPI: HPI: History obtained from patient. Patient is a 59-year-old female with a history of asthma, GERD, diverticulosis who presents with chief complaint of sudden onset right upper quadrant right flank pain that began 4 hours prior to arrival. States pain began while at rest. States has been constant. States is difficult to find a position of comfort. States the pain is sharp and sometimes starts in her right upper quadrant radiates to her right flank. Denies any migration of the pain. Denies any dysuria or hematuria. Does note clear frequent urination but states that she drinks water all the time. Denies any changes to her stool caliber or consistency. Denies any blood in stool. Denies syncope. Denies any history of gallbladder disease or kidney stones. Notes that she does take Pepcid daily for heartburn. States she has noticed a little bit of increased heartburn over the past few days. Denies chest pain or shortness of breath. Denies cough or fever. Notes a remote history of C- section. Has not tried medicine prior to arrival. Did eat breakfast this morning without symptoms. No other complaints. Review of Systems: Review of Systems: Constitutional: Denies fever or chills Eyes: Denies change in visual acuity HENT: Denies nasal congestion or sore throat Respiratory: Denies cough or shortness of breath Cardiovascular: Denies chest pain or edema GI: Positive for abdominal pain and nausea : Denies dysuria Musculoskeletal: Denies back pain or joint pain Integument: Denies rash Neurologic: Denies headache, focal weakness or sensory changes Endocrine: Denies polyuria or polydipsia Lymphatic: Denies swollen glands Psychiatric: Denies depression or anxiety Allergies: Allergies: Allergies Coded Allergies Type Severity Reaction Last Updated Verified aspirin Allergy Unknown 11/04/19 Yes gatifloxacin Allergy Unknown 11/04/19 Yes Physical Exam: PE: Constitutional: Well developed, well nourished, no acute distress, non-toxic appearance. [] HENT: Normocephalic, atraumatic, bilateral external ears normal, oropharynx moist, no oral exudates, nose normal. [] Eyes: PERRLA, EOMI, conjunctiva normal, no discharge. [] Neck: Normal range of motion, no tenderness, supple, no stridor. [] Cardiovascular:Heart rate regular rhythm, no murmur [] Lungs & Thorax: Bilateral breath sounds clear to auscultation [] Abdomen: soft, no tenderness, no masses, no pulsatile masses. [] Skin: Warm, dry, no erythema, no rash. [] Back: Moderate right CVA tenderness Extremities: No tenderness, no cyanosis, no clubbing, ROM intact, no edema. [] Neurologic: Alert and oriented X 3, normal motor function, normal sensory function, no focal deficits noted. [] Psychologic: Affect normal, judgement normal, mood normal. [] Current Patient Data: Labs: Laboratory Tests Test 04/12/20 14:25 04/12/20 15:06 White Blood Count 6.7 x10^3/uL Red Blood Count 4.80 x10^6/uL Hemoglobin 14.6 g/dL Hematocrit 43.9 % Mean Corpuscular Volume 92 fL Mean Corpuscular Hemoglobin 30 pg Mean Corpuscular Hemoglobin Concent 33 g/dL Red Cell Distribution Width 13.1 % Platelet Count 255 x10^3/uL Neutrophils (%) (Auto) 56 % Lymphocytes (%) (Auto) 34 % Monocytes (%) (Auto) 8 % Eosinophils (%) (Auto) 2 % Basophils (%) (Auto) 0 % Neutrophils # (Auto) 3.7 x10^3uL Lymphocytes # (Auto) 2.3 x10^3/uL Monocytes # (Auto) 0.6 x10^3/uL Eosinophils # (Auto) 0.1 x10^3/uL Basophils # (Auto) 0.0 x10^3/uL Sodium Level 139 mmol/L Potassium Level 3.1 mmol/L Chloride Level 102 mmol/L Carbon Dioxide Level 32 mmol/L Anion Gap 5 Blood Urea Nitrogen 16 mg/dL Creatinine 0.9 mg/dL Estimated GFR (Cockcroft-Gault) 63.7 BUN/Creatinine Ratio 18 Glucose Level 94 mg/dL Calcium Level 9.2 mg/dL Total Bilirubin 0.2 mg/dL Aspartate Amino Transf (AST/SGOT) 16 U/L Alanine Aminotransferase (ALT/SGPT) 32 U/L Alkaline Phosphatase 99 U/L Total Protein 7.4 g/dL Albumin 3.8 g/dL Albumin/Globulin Ratio 1.1 Lipase 119 U/L Urine Collection Type Unknown Urine Color Yellow Urine Clarity Hazy Urine pH 7.0 Urine Specific Banks 1.020 Urine Protein Neg Urine Glucose (UA) Neg mg/dL Urine Ketones (Stick) Neg mg/dL Urine Blood Neg Urine Nitrite Neg Urine Bilirubin Neg Urine Urobilinogen Dipstick 0.2 mg/dL Urine Leukocyte Esterase Mod Urine RBC 1-2 /HPF Urine WBC 11-20 /HPF Urine Squamous Epithelial Cells Many /LPF Urine Bacteria Few /HPF Current Medications Medications (Trade) Dose Ordered Sig/Zain Route PRN Reason Start Time Stop Time Status Last Admin Dose Admin Sodium Chloride 1,000 ml @ 1,000 mls/hr 1X ONCE IV 04/12/20 14:15 04/12/20 15:14 DC 04/12/20 14:23 Morphine Sulfate (Morphine 4mg Syringe) 4 mg 1X ONCE IV 04/12/20 14:15 04/12/20 14:16 DC 04/12/20 14:23 Ketorolac Tromethamine (Toradol 15mg Vial) 15 mg 1X ONCE IVP 04/12/20 14:15 04/12/20 14:16 DC 04/12/20 14:23 Ondansetron HCl (Zofran) 4 mg 1X ONCE IVP 04/12/20 14:15 04/12/20 14:16 DC 04/12/20 14:24 Ondansetron HCl (Zofran) 4 mg STK-MED ONCE .ROUTE 04/12/20 14:14 04/12/20 14:15 DC Ketorolac Tromethamine (Toradol 15mg Vial) 15 mg STK-MED ONCE .ROUTE 04/12/20 14:14 04/12/20 14:15 DC Vital Signs: Vital Signs Date Time Temp Pulse Resp B/P (MAP) Pulse Ox O2 Delivery O2 Flow Rate FiO2 04/12/20 14:51 98.3 86 18 158/47 (84) 96 EKG: EKG: [] Radiology/Procedures: Radiology/Procedures: [address] [address] IMAGING REPORT Signed PATIENT: NANCY BUENO ACCOUNT: [id number] : 1960 LOCATION: ER AGE: 59 SEX: F EXAM STATUS: REG ER ORD. PHYSICIAN: MEÑO WELCH DO REASON: Severe right anterior and flank pain today PROCEDURE: CT ABDOMEN PELVIS WO CONTRAST CT STUDY OF THE ABDOMEN AND PELVIS WITHOUT CONTRAST CLINICAL INDICATIONS: Severe right anterior abdominal pain and flank pain that started today. COMPARISON: May 15, 2019. TECHNIQUE: Noncontrast helical CT scanning of the abdomen and pelvis was performed. Without contrast, the sensitivity to detect organ pathology and GI tract pathology is decreased. PQRS compliance Statement One or more of the following individualized dose reduction techniques were utilized for this study: 1. Automated exposure control 2. Adjustment of the mA and/or kV according to patient size 3. Use of iterative reconstruction technique FINDINGS: Geographic hypodensity of the right lobe of the liver is seen consistent with fatty infiltration. This was seen previously. Spleen is not enlarged. No focal pancreatic enlargement is seen. Gallbladder is normal and no extra hepatic biliary ductal dilatation is seen. No adrenal mass is seen. No hydronephrosis or hydroureter or urinary tract stone is evident. Urinary bladder wall is smooth. No dominant ovarian cyst or mass is seen. No focal aneurysmal dilatation of the abdominal aorta is seen. No enlarged abdominal or pelvic lymphadenopathy is seen. Colonic diverticulosis is seen most prominently involving the sigmoid colon without diverticulitis. The appendix is normal. The terminal ileum is unremarkable. No obstructive bowel pattern is seen. No anterior abdominal wall hernia is seen. No free air or free fluid or mesenteric edema is seen. No lung base consolidation is evident. No lytic process is seen. IMPRESSION: No acute abnormality of the abdomen or pelvis. Electronically signed by: Rolando Stapleton MD (04/12/2020 3:26 PM) [id number] DICTATED AND SIGNED BY: ROLANDO STAPLETON MD DATE: 04/12/20 1520 CC: BRI QUEZADA; MEÑO WELCH DO ~MTH0 0 [] Heart Score: Risk Factors: Risk Factors: DM, Current or recent (<one month) smoker, HTN, HLP, family history of CAD, obesity. Risk Scores: Score 0 - 3: 2.5% MACE over next 6 weeks - Discharge Home Score 4 - 6: 20.3% MACE over next 6 weeks - Admit for Clinical Observation Score 7 - 10: 72.7% MACE over next 6 weeks - Early Invasive Strategies Course & Med Decision Making: Course & Med Decision Making Pertinent Labs and Imaging studies reviewed. (See chart for details) [] Patient is a 59-year-old female who presents with chief complaint of sudden onset right upper quadrant right flank pain 4 hours prior to arrival. Initial vital signs unremarkable. Exam notable for reproducible tenderness over the right flank. Basic labs were obtained. No leukocytosis. LFTs normal. Lipase normal. Urinalysis does show some white blood cells. Few bacteria. Overall very low suspicion for clinical pyelonephritis. No radiographic evidence to support this. However she will be given antibiotics for home. Urine culture pending. Given the patient reports difficulty in finding a position of comfort and her symptoms not made worse with food CT abdomen pelvis without contrast was obtained. This is negative for acute abnormality. On repeat examination she states her pain has resolved with analgesia. Overall the exact etiology of her symptoms is unclear. No signs of kidney stone. Low suspicion for acute surgical gallbladder disease given normal labs and reassuring imaging. She may be experiencing biliary colic versus a flare of her baseline GERD. Low suspicion for anginal equivalent as pain is reproducible easily. No splint for PE. Nontachypneic. Not hypoxic. No PE risk factors that she endorses. Patient has tolerated p.o. Vital signs been stable. Repeat exam remains reassuring. I do feel she is appropriate for discharge home with outpatient treatment. She will be discharged home with Rosenda and Natalia. Strict ~24 return precautions were discussed and understood. Instructed to follow-up with her primary care physician in the next 2 to 3 days. Stable for discharge home. I provided verbal discharge instructions regarding their emergency department diagnosis. If you had any diagnostic studies ( Labs or Xray's, CAT scan, Ultrasound ) have your PCP (Primary Care Physician) review them with you since there may be results that require further follow up or investigation. Prognosis, expected clinical course, and return precautions were reviewed. I answered the patients questions and instructed them to return if any new or worsening symptoms develop. The patient expressed understanding of the instructions and reported that all of their questions had been answered. Maurice Disclaimer: Maurice Disclaimer: This electronic medical record was generated, in whole or in part, using a voice recognition dictation system. Departure Departure: Impression: Primary Impression: Right flank pain Additional Impressions: Hypokalemia Bacteria in urine Disposition: 01 DC HOME SELF CARE/HOMELESS Condition: STABLE Referrals: BRI QUEZADA (PCP) Additional Instructions: Discharge Abdominal Pain Re-Check Precautions: I'm unsure of the specific cause of your abdominal pain. However, at this point I feel that you are low risk for a life threatening emergency and that discharge from the Emergency Department is safe. There is a very small possibility that you are just too early in your clinical course for our physical exam/labs/imaging to ascertain whether or not you have an emergent condition that could potentially cause permanent disability or be life threatening. As such, it is very important that you follow up with your primary doctor or return to the Emergency Department in 12-24 hours for re-assessment and further evaluation if clinically indicated. If you develop new or worsening symptoms then you should return to the Emergency Department immediately. Home Care Instructions: Abdominal Pain Many things may cause abdominal pain. Your ER visit might not show the exact reason you are having pain. In some cases, additional time is needed to determine if the cause is serious. Therefore you may be told to go home and watch for any changes or worsening in your condition. Before that, we may not know if you need more testing, or if hospitalization or surgery is necessary. If its not something serious, the pain may go away without treatment or get better with simple things like avoiding certain foods or medications. In the ER, your doctor asks you questions, examines you and in some cases, may order tests. These help doctors decide if the pain is from something serious. Tests are not always done and may not provide a definite answer. There can still be a problem, even with normal test results. Abdominal pain may be caused by something serious (like appendicitis), which is not obvious right away. Because of this, another checkup is needed to make sure you are OK. It is VERY IMPORTANT to follow up for a repeat exam, especially if you have any symptoms that are not going away or are getting worse. We recommend that you RETURN TO THE EMERGENCY ROOM IN 8-12 HOURS to be rechecked. If you cannot, you may follow up with your primary care doctor or clinic. It is important that you follow all of the instructions below. RETURN TO THE EMERGENCY ROOM IMMEDIATELY IF: The pain does not go away or gets worse. You have a fever. You keep throwing up and cannot keep anything down. You pass bloody or black stools. You develop new symptoms. HOME CARE INSTRUCTIONS Come back to the ER (or see your doctor) in 8-12 hours. DO NOT take laxatives unless directed by your doctor. Avoid the use of alcohol Take pain medicine only as directed by your doctor. Only take [id number] or prescription medicine as directed by your doctor. Try a clear liquid diet (broth, tea, jello, water) for the next 12-24 hours. Slowly move to a bland diet as tolerated. Do not eat greasy, fatty or spicy foods. Once you start getting better, go back to a normal, healthy diet, slowly over a few days. DISCHARGE PT INSTRUCTIONS: YOU HAVE BEEN EVALUATED FOR ABDOMINAL PAIN. HOWEVER, WE ARE UNABLE TO PROVIDE A DEFINITE CAUSE OF YOUR SYMPTOMS. EVEN THOUGH YOUR TESTS MAY HAVE BEEN NORMAL, YOU STILL COULD HAVE A SERIOUS CAUSE FOR YOUR ABDOMINAL PAIN, INCLUDING APPENDICITIS. THE BEST TEST TO DETERMINE IF YOU HAVE A SERIOUS CAUSE IS RE-EXAMINATION OVER TIME. WE USED TO ADMIT PATIENTS TO THE HOSPITAL FOR THIS, BUT CAN NOW ALLOW YOU TO GO HOME, & RETURN TO OUR ER THE NEXT DAY FOR RE- EXAMINATION. THUS, WE WOULD LIKE YOU TO RETURN TO OUR ER TOMORROW FOR YOUR RE- EVALUATION. (IF YOUR SYMPTOMS HAVE GONE AWAY, THEN YOU DO NOT NEED TO RETURN.) IF YOUR SYMPTOMS GET WORSE BETWEEN NOW & THEN, YOU SHOULD RETURN IMMEDIATELY & NOT WAIT UNTIL TOMORROW. SYMPTOMS TO LOOK FOR WORSENING PAIN, HIGH FEVER, PERSISTENT VOMITING [NOT CONTROLLED BY MEDICINE], AND/OR OVERALL WORSENING OF YOUR CONDITION. Scripts Cefpodoxime Proxetil (CEFPODOXIME PROXETIL) 200 Mg Tablet 1 TAB PO BID for bacturia, #14 TAB Prov: MEÑO WELCH DO 04/12/20 Ondansetron Hcl (ZOFRAN) 4 Mg Tablet 4 MG PO TID PRN PRN for NAUSEA, #9 TAB Prov: MEÑO WELCH DO 04/12/20 Dicyclomine Hcl (DICYCLOMINE HCL) 20 Mg Tablet 20 MG PO QIDPRN PRN for PAIN, #16 TAB Prov: MEÑO WELCH DO 04/12/20 MEÑO WELCH DO Apr 12, 2020 14:08
[2020-04-12] MEDS ORDERED: KETOROLAC 15 MG/ML VIAL. ONE (14:14)
[2020-04-12] MEDS ORDERED: ONDANSETRON PF 4 MG/2 ML VIAL. ONE (14:14)
[2020-04-12] MEDS ORDERED: KETOROLAC 15 MG/ML VIAL. IVP ONE (14:15)
[2020-04-12] MEDS ORDERED: MORPHINE SULFATE 4 MG/ML DISP.SYRIN. IV ONE (14:15)
[2020-04-12] MEDS ORDERED: IV NORMAL SALINE 1,000ML 1,000 ML IV ONE (14:15)
[2020-04-12] MEDS ORDERED: ONDANSETRON PF 4 MG/2 ML VIAL. IVP ONE (14:15)
[2020-04-12 14:44] LABS: BASO % 0 % (0-3); EOS # 0.1 x10^3/uL (0.0-0.7); EOS % 2 % (0-3); HEMATOCRIT 43.9 % (36.0-47.0); HEMOGLOBIN 14.6 g/dL (12.0-15.5); LYMPH # 2.3 x10^3/uL (1.0-4.8); LYMPH % 34 % (24-48); MEAN CORPUSCULAR HEMOGLOBIN 30 pg (25-35); MEAN CORPUSCULAR HGB CONC 33 g/dL (31-37); MEAN CORPUSCULAR VOLUME 92 fL (79-100); MONO # 0.6 x10^3/uL (0.0-1.1); MONO % 8 % (0-9); NEUT # 3.7 x10^3uL (1.8-7.7); NEUT % 56 % (31-73); PLATELET COUNT 255 x10^3/uL (140-400); RED CELL DISTRIBUTION WIDTH 13.1 % (11.5-14.5); WHITE BLOOD COUNT 6.7 x10^3/uL (4.0-11.0)
[2020-04-12 14:51] VITALS: BP 158/47
[2020-04-12 14:53] LABS: CALCIUM 9.2 mg/dL (8.5-10.1); CREATININE 0.9 mg/dL (0.6-1.0); GFR 63.7; POTASSIUM 3.1 mmol/L (3.5-5.1)
[2020-04-12 14:59] LABS: ALBUMIN 3.8 g/dL (3.4-5.0); ALBUMIN/GLOBULIN RATIO 1.1 (1.0-1.7); TOTAL BILIRUBIN 0.2 mg/dL (0.2-1.0); TOTAL PROTEIN 7.4 g/dL (6.4-8.2)
--- NOTE | 2020-04-12 15:28 | RAD ---
CT STUDY OF THE ABDOMEN AND PELVIS WITHOUT CONTRAST CLINICAL INDICATIONS: Severe right anterior abdominal pain and flank pain that started today. COMPARISON: May 15, 2019. TECHNIQUE: Noncontrast helical CT scanning of the abdomen and pelvis was performed. Without contrast, the sensitivity to detect organ pathology and GI tract pathology is decreased. PQRS compliance Statement One or more of the following individualized dose reduction techniques were utilized for this study: 1. Automated exposure control 2. Adjustment of the mA and/or kV according to patient size 3. Use of iterative reconstruction technique FINDINGS: Geographic hypodensity of the right lobe of the liver is seen consistent with fatty infiltr ation. This was seen previously. Spleen is not enlarged. No focal pancreatic enlargement is seen. Gal lbladder is normal and no extra hepatic biliary ductal dilatation is seen. No adrenal mass is seen. N o hydronephrosis or hydroureter or urinary tract stone is evident. Urinary bladder wall is smooth. No dominant ovarian cyst or mass is seen. No focal aneurysmal dilatation of the abdominal aorta is seen . No enlarged abdominal or pelvic lymphadenopathy is seen. Colonic diverticulosis is seen most promin ently involving the sigmoid colon without diverticulitis. The appendix is normal. The terminal ileum is unremarkable. No obstructive bowel pattern is seen. No anterior abdominal wall hernia is seen. No free air or free fluid or mesenteric edema is seen. No lung base consolidation is evident. No lytic p rocess is seen. IMPRESSION: No acute abnormality of the abdomen or pelvis. Electronically signed by: Cr Stapleton MD (04/12/2020 3:26 PM) [id number]
[2020-04-12] MEDS ORDERED: ONDA4TAB7 PO (15:53)
[2020-04-12] MEDS ORDERED: DICY20TA3 PO (15:53)
[2020-04-12 15:57] LABS: BILIRUBIN,URINE NEG (NEG); CLARITY,URINE HAZY; COLOR,URINE YELLOW; GLUCOSE,URINE NEG (NEG); NITRITE,URINE NEG (NEG); UROBILINOGEN,URINE 0.2 mg/dL (0.2 mg/dL)
[2020-04-12 15:58] LABS: BACTERIA,URINE FEW /HPF (0-FEW); SQUAMOUS EPITHELIAL CELL,UR MANY /LPF
[2020-04-12] MEDS ORDERED: POTASSIUM CHLORIDE 20 MEQ TABLET.ER. PO ONE (16:00)
[2020-04-12] MEDS ORDERED: NITROFURANTOIN MONOHYD/M-CRYST 100 MG CAPSULE. PO ONE (16:00)
[2020-04-12] MEDS ORDERED: CEFP200T PO (16:03)
[2020-04-12] MEDS ORDERED: CEPHALEXIN 250 MG CAPSULE PO ONE (16:15)
== END 2020-04-12 16:49 | disposition home or self-care (01) ==
LOC: ER 13:53
DX: R10.11 Right upper quadrant pain (principal); R82.71 Bacteriuria; E87.6 Hypokalemia; R11.0 Nausea; J45.909 Unspecified asthma, uncomplicated; F32.9 Major depressive disorder, single episode, unspecified; K21.9 Gastro-esophageal reflux disease without esophagitis; Z90.710 Acquired absence of both cervix and uterus; Z98.890 Other specified postprocedural states; Z88.1 Allergy status to other antibiotic agents; Z88.8 Allergy status to other drugs, medicaments and biological substances
CPT/HCPCS: 36415; 74176; 80053; 81001; 83690; 85025; 87086; 96361; 96374; 96375; 99284; J1885; J2270; J2405; J7030

== ENCOUNTER 2020-06-13 07:46 | Emergency (ER) | payer BC ==
[~2020-06-13] VITALS: Ht 167.6 cm; Wt 102.6 kg
[~2020-06-13 07:46] MED LIST changes: +CEFP200T PO; +DICY20TA3 PO; +ONDA4TAB7 PO
--- NOTE | 2020-06-13 08:00 | PHYS DOC ---
Past History Past Medical History: Asthma, Depression, Diverticulitis, GERD Past Surgical History: , Hysterectomy, Other Additional Past Surgical Histo: FOOT SURGERIES; 2 laparascopic surg for endometriosis Alcohol Use: Rarely Drug Use: None General Adult EDM: Chief Complaint: CHEST PAIN HPI: HPI: 59 yo F PMH asthma, diverticulitis, depression and GERD, presents to the ED with complaints of " sharp, excruciating 10/10 chest pain on the left side where the ribs are, that goes directly to the back," lasted for approximately 30 minutes "nonstop" while patient was driving to work. Reports associated left arm tingling and nausea. States she went up 2 flights of stairs at work and felt short of breath. Patient states pain is now mild, "cause I'm not moving," and exacerbated with deep breaths. Reports her blood pressure is normally in the 120s or 130s. Denies any history of cocaine, methamphetamine or tobacco use. No history of Covid. Reports a stress test 25 years ago in her 30s but cannot recall why. No pmh or family history of ACS, sudden under the age of 50, cardiac arrhythmias, connective tissue disorders, AAA, aortic dissection, DVT or PEs. Last surgery was in 1993. No recent hospitalizations or surgeries. Review of Systems: Review of Systems: Constitutional: Denies fever or chills Eyes: Denies change in visual acuity HENT: Denies nasal congestion or sore throat Respiratory: Denies cough or hemoptysis Cardiovascular: Denies syncope or edema GI: Denies abdominal pain, bloody stools or diarrhea : Denies dysuria or hematuria Musculoskeletal: Denies joint pain or swelling Integument: Denies rash or diaphoresis Neurologic: Denies headache, neck pain, focal weakness or sensory changes Endocrine: Denies polyuria or polydipsia Lymphatic: Denies swollen glands Psychiatric: Denies depression or anxiety Allergies: Allergies: Allergies Coded Allergies Type Severity Reaction Last Updated Verified aspirin Allergy Unknown 11/04/19 Yes gatifloxacin Allergy Unknown 11/04/19 Yes Physical Exam: PE: Constitutional: Well developed, well nourished, no acute distress, non-toxic appearance, obese HENT: Normocephalic, atraumatic, Eyes: EOMI, conjunctiva normal, no discharge. Neck: Normal range of motion, supple, Cardiovascular: S1/2 present, regular rhythm Lungs & Thorax: Speaking in full sentences, bilateral equal chest rise, no tachypnea or increased work of breathing Abdomen: soft, no tenderness, Skin: Warm, dry, no erythema, no rash. [] Back: No midline tenderness, no CVA tenderness. [] Extremities: No tenderness, no cyanosis, no unilateral lower extremity edema Neurologic: Alert and oriented X 3, normal motor function, normal sensory function, no focal deficits noted. [] Psychologic: Affect normal, judgement normal, mood normal. [] EKG: EKG: Sinus rhythm 66 bpm, no axis deviation, normal intervals, T wave inversion lead III, no ST elevations or ST depressions Radiology/Procedures: Radiology/Procedures: IMAGING REPORT Signed PATIENT: NANCY BUENO ACCOUNT: [id number] : 1960 LOCATION: ER AGE: 59 SEX: F EXAM STATUS: REG ER ORD. PHYSICIAN: BRI FOOTE DO REASON: cp PROCEDURE: PORTABLE CHEST 1V XR CHEST 1V 06/13/2020 8:07 AM INDICATION: Chest pain COMPARISON: 11/04/2019 TECHNIQUE: Portable frontal view of the chest is provided. FINDINGS: The cardiomediastinal silhouette is within normal limits. Lungs are clear. There are no significant pleural effusions. There is no pulmonary vascular congestion. No pneumothorax. No suspicious osseous abnormality. IMPRESSION: There is no acute cardiopulmonary process. Electronically signed by: Anna Delong MD (06/13/2020 8:11 AM) [id number] DICTATED AND SIGNED BY: ANNA DELONG MD DATE: 06/13/20 0811 CC: BRI QUEZADA; BRI FOOTE DO ~MTH0 0 Heart Score: HEART Score for Chest Pain: HEART Score for Chest Pain Response (Comments) Value History Slighlty/Non-Suspicious 0 ECG Normal 0 Age >45 - < 65 1 Risk Factors 1 or 2 Risk Factors 1 Troponin < Normal Limit 0 Total 2 Risk Factors: Risk Factors: DM, Current or recent (<one month) smoker, HTN, HLP, family history of CAD, obesity. Risk Scores: Score 0 - 3: 2.5% MACE over next 6 weeks - Discharge Home Score 4 - 6: 20.3% MACE over next 6 weeks - Admit for Clinical Observation Score 7 - 10: 72.7% MACE over next 6 weeks - Early Invasive Strategies Course & Med Decision Making: Course & Med Decision Making Pertinent Labs and Imaging studies reviewed. (See chart for details) Concern for chest pain that moved to pts' back but has resolved in ed. No recur rence of pain in ed. Two troponins negative. BP in normal range. Pt not a tobacco smoker. Normal mediastinum on cxr. We discussed possibility of dissection and pts' low risk factors, pt declines CTA angio given that her pain has subsided. Understands she's low risk for MACE and agrees to return if sxs returned. Will discharge home with strict ED return precautions were given for syncope, dyspnea, hemoptysis, neuro deficits or recurring chest/back pain. Encouraged urgent outpatient follow-up with PMD and cardiology for outpt evaluation. Life-threatening processes were considered but are low suspicion at this time, given history, physical exam and ED workup. Pt was educated on all prescription medications and adverse effects. All patient's questions were ans wered and pt was stable at time of discharge. Life/limb-threatening differential includes but is not limited to, acute myocardial infarction, aortic dissection, congestive heart failure, esophageal injury including rupture, surgical abdomen, arrhythmia, cardiomyopathy, myocarditis, pericarditis, peptic ulcer disease, pneumomediastinum, pneumonia, pneumothorax, pulmonary embolus, unstable angina, rib fracture, contusion, pericardial tamponade or effusion, traumatic injury including mediastinal hemorrhage or hematoma, or pulmonary contusion. I spoken with the patient and her caregivers. I explained the patient's condition, diagnoses and treatment plan based on the information available to me at this time. I have answered the patient and her caregiver's questions and addressed any concerns. The patient and her caregivers have a good understanding of patient's diagnosis, condition and treatment plan as can be expected at this point. Vital signs have been stable. Patient's condition is stable and appropriate for discharge from the emergency department. Patient will pursue further outpatient evaluation with primary care physician or other designated or consulting physician as outlined in the discharge instructions. The patient and/or caregivers are agreeable to this plan of care and follow-up instructions have been explained in detail. The patient and/or caregivers have received these instructions in written form and have expressed an understanding of the discharge instructions. The patient and/or caregivers are aware that any significant change of condition or worsening of symptoms should prompt immediate return to this or the closest emergency department or call to [id number] Disclaimer: Maurice Disclaimer: This electronic medical record was generated, in whole or in part, using a voice recognition dictation system. Departure Departure: Impression: Primary Impression: Chest pain Disposition: 01 DC HOME SELF CARE/HOMELESS Condition: STABLE Referrals: BRI QUEZADA (PCP) Patient Instructions: Chest Pain (Nonspecific) Additional Instructions: FOLLOW UP WITH CARDIOLOGY: [facility] [address] [facility] [address] [place] [address] [facility] Cardiology [address] [place] [id number] EMERGENCY DEPARTMENT GENERAL DISCHARGE INSTRUCTIONS Thank you for coming to [facility] (ED) today and trusting us with you care. We trust that you had a positivie experience in our Emergency Department. If you wish to speak to the department management, you may call the director at [phone]. YOUR FOLLOW UP INSTRUCTIONS ARE FOLLOWS: 1. Do you have a private Doctor? If you do not have a private doctor, please ask for a resource list of physicians or clinics that may be able to assist you with follow up care. 2. The Emergency Physician has interpreted your x-rays. The X-Ray specialist will also review them. If there is a change in the findings, you will be notified in 48 hours when at all possible. 3. A lab test or culture has been done, your results will be reviewed and you will be notified if you need a change in treatment. ADDITIONAL INSTRUCTIONS AND INFORMATION: 1. Your care today has been supervised by a physician who is specially trained in emergency care. Many problems require more than one evaluation for a complete diagnosis and treatment. We recommend that you schedule your follow up appointment as recommended to ensure complete treatment of you illness or injury. If you are unable to obtain follow up care and continue to have a problem, or if your condition worsens, we recommend that you return to the ED. 2. We are not able to safely determine your condition over the phone nor are we able to give sound medical advice over the phone. For these safety reasons, if you call for medical advice we will ask you to come to the ED for further evaluation. 3. If you have any questions regarding these discharge instructions please call the ED at [phone]. SAFETY INFORMATION: In the interest of safety, wellness, and injury prevention; we encourage you to wear your sealbelt, if you smoke; quite smoking, and we encourage family to use a protective helmet for bicycling and other sporting events that present an increased risk for head injury. IF YOUR SYMPTOMS WORSEN OR NEW SYMPTOMS DEVELOP, OR YOU HAVE CONCERNS ABOUT YOUR CONDITION; OR IF YOUR CONDITION WORSENS WHILE YOU ARE WAITING FOR YOUR FOLLOW UP APPOINTMENT; EITHER CONTACT YOUR PRIMARY CARE DOCTOR, THE PHYSICIAN WHOSE NAME AND NUMBER YOU WERE GIVEN, OR RETURN TO THE ED IMMEDIATELY. BRI FOOTE DO Jun 13, 2020 08:00
[2020-06-13 08:29] LABS: BASO % 1 % (0-3); EOS # 0.1 x10^3/uL (0.0-0.7); EOS % 2 % (0-3); HEMATOCRIT 46.5 % (36.0-47.0); HEMOGLOBIN 15.4 g/dL (12.0-15.5); LYMPH # 1.4 x10^3/uL (1.0-4.8); LYMPH % 31 % (24-48); MEAN CORPUSCULAR HEMOGLOBIN 31 pg (25-35); MEAN CORPUSCULAR HGB CONC 33 g/dL (31-37); MEAN CORPUSCULAR VOLUME 93 fL (79-100); MONO # 0.4 x10^3/uL (0.0-1.1); MONO % 9 % (0-9); NEUT # 2.7 x10^3uL (1.8-7.7); NEUT % 58 % (31-73); PLATELET COUNT 229 x10^3/uL (140-400); RED BLOOD COUNT 4.99 x10^6/uL (3.50-5.40); RED CELL DISTRIBUTION WIDTH 13.2 % (11.5-14.5); WHITE BLOOD COUNT 4.6 x10^3/uL (4.0-11.0)
--- NOTE | 2020-06-13 08:32 | RAD ---
XR CHEST 1V 06/13/2020 8:07 AM INDICATION: Chest pain COMPARISON: 11/04/2019 TECHNIQUE: Portable frontal view of the chest is provided. FINDINGS: The cardiomediastinal silhouette is within normal limits. Lungs are clear. There are no significant pleural effusions. There is no pulmonary vascular congestion. No pneumothora x. No suspicious osseous abnormality. IMPRESSION: There is no acute cardiopulmonary process. Electronically signed by: Cristiane Blair MD (06/13/2020 8:11 AM) [id number]
[2020-06-13 08:38] LABS: CALCIUM 9.1 mg/dL (8.5-10.1); CREATININE 0.8 mg/dL (0.6-1.0); GFR 72.9; POTASSIUM 3.2 mmol/L (3.5-5.1)
[2020-06-13 08:50] LABS: ALBUMIN 3.6 g/dL (3.4-5.0); ALBUMIN/GLOBULIN RATIO 0.9 (1.0-1.7); MAGNESIUM 2.3 mg/dL (1.8-2.4); TOTAL BILIRUBIN 0.4 mg/dL (0.2-1.0); TOTAL PROTEIN 7.4 g/dL (6.4-8.2)
[2020-06-13 09:55] LABS: AMPHETAMINE/METHAMPHETAMINE NEG (NEG); BARBITURATES NEG (NEG); BENZODIAZEPINES NEG (NEG); CANNABINOIDS NEG (NEG); COCAINE NEG (NEG); METHADONE NEG (NEG); OPIATES NEG (NEG); PHENCYCLIDINE NEG (NEG)
--- NOTE | 2020-06-13 12:23 | EKG ---
[address] [address] Test Date: 2020-06-13 Test Time: 07:58:39 Pat Name: NANCY BUENO Department: Room: Gender: F [employer]: MILA : 1960 Requested By: BRI FOOTE Order Number: [id number] Reading MD: Measurements Intervals Wilbur Rate: 66 P: 38 TX: 166 QRS: 10 QRSD: 90 T: 14 QT: 396 QTc: 417 Interpretive Statements SINUS RHYTHM NORMAL ECG RI6.02 No previous ECG available for comparison
[2020-06-13 13:00] VITALS: BP 134/56
== END 2020-06-13 13:04 | disposition home or self-care (01) ==
LOC: ER 07:46
DX: R07.81 Pleurodynia (principal); R20.2 Paresthesia of skin; J45.909 Unspecified asthma, uncomplicated; K21.9 Gastro-esophageal reflux disease without esophagitis; F32.9 Major depressive disorder, single episode, unspecified; Z88.6 Allergy status to analgesic agent; Z88.1 Allergy status to other antibiotic agents
CPT/HCPCS: 36415; 71045; 80053; 80307; 83690; 83735; 83880; 84484; 85025; 85379; 93005; 99285

== ENCOUNTER → 2020-08-05 | Outpatient (CLI) | payer BC ==
--- NOTE | 2020-08-05 14:21 | RAD ---
EXAM: US RENAL BILAT 08/05/2020 7:50 AM INDICATION: Recurrent UTIs. COMPARISON: CT abdomen pelvis 04/12/2020 TECHNIQUE: Grayscale and color Doppler ultrasound images of the kidneys and bladder. FINDINGS: The right kidney measures 10.6 x 5.4 x 5.0 cm. The left kidney measures 12.0 x 4.9 x 5.0 cm. Renal echogenicity and cortical thickness are normal. No hydronephrosis. The urinary bladder is not well distended, limiting evaluation. Abdominal aorta and inferior vena cava are normal in appearance. IMPRESSION: Unremarkable renal ultrasound. Electronically signed by: Lynn Child MD (08/05/2020 2:19 PM) [id number]
== END ==
LOC: US 07:36
PROVIDERS: ATTEND Physician Assistant Medical
DX: N39.0 Urinary tract infection, site not specified (principal)
CPT/HCPCS: 76770

== ENCOUNTER → 2020-08-12 | Outpatient (CLI) | payer BC ==
--- NOTE | 2020-08-12 12:37 | RAD ---
EXAM: Abdomen and pelvis CT without intravenous contrast. HISTORY: Right lower quadrant pain. TECHNIQUE: Computed tomographic images of the abdomen and pelvis were obtained without contrast. Mult iplanar reformatting was performed. *One or more of the following individualized dose reduction techniques were utilized for this examina tion: 1. Automated exposure control. 2. Adjustment of the mA and/or kV according to patient size. 3. Use of iterative reconstruction technique. COMPARISON: 04/12/2020 and 08/15/2017. FINDINGS: Evaluation of the lower thorax is unremarkable. There is stable geographic fatty infiltrati on of the right hepatic lobe. The gallbladder, pancreas, spleen, stomach and adrenal glands are unrem arkable. There is a stable 8 mm hyperdense nodule along the medial upper mid zone of the left kidney. There is no nephrolithiasis or hydronephrosis. There is no appendicitis. There is no bowel obstruction or abnormal bowel wall thickening. There is sigmoid diverticulosis. The bladder is nearly empty. The uterus and adnexal regions are unremarkable. There is aortic and aortic branch vessel atherosclerosis. There is no lymphadenopathy. There is no suspicious osseous lesion. There are degenerative changes th roughout the spine. IMPRESSION: 1. Hepatic steatosis. 2. Colonic diverticulosis. 3. Stable 8 mm hyperdense lesion along the medial left kidney. The 3 year course of stability favors a benign etiology such as a hemorrhagic cyst. However, the possibility of a stable small solid lesion is not excluded. Sonographic follow-up is recommended to confirm benignity. Electronically signed by: Cheryl Valle MD (08/12/2020 12:35 PM) [id number]
== END ==
LOC: RAD 12:10
PROVIDERS: ATTEND Physician Assistant Medical
DX: K57.30 Diverticulosis of large intestine without perforation or abscess without bleeding (principal); K76.0 Fatty (change of) liver, not elsewhere classified
CPT/HCPCS: 74176